=== PATIENT | female | born 1995 | race Hispanic/Latino ===

== ENCOUNTER 2017-06-24 07:19 | Emergency (ER) | payer OTHER ==
[~2017-06-24] VITALS: Ht 154.9 cm; Wt 64.4 kg
[2017-06-24] MEDS ORDERED: PRENAISSANCE C1 EACH PO (07:30)
== END 2017-06-24 08:58 | disposition home or self-care (01) ==
LOC: ED 07:19
DX: O02.1 Missed abortion (principal); Z79.899 Other long term (current) drug therapy
CPT/HCPCS: 76801; 76817; 84702; 85025; 99284

== ENCOUNTER 2017-06-26 09:57 | Day surgery (SDC) | payer OTHER ==
[~2017-06-26] VITALS: Ht 154.9 cm; Wt 64.4 kg
[~2017-06-26 09:57] MED LIST: PRENAISSANCE C1 EACH PO
--- NOTE | 2017-06-26 12:01 | NUR ---
06/26/17 Magy Thacker REPORT FROM [facility].
--- NOTE | 2017-06-26 12:40 | NUR ---
PATIENT BACK IN DAY SURGERY ROOM FROM PACU. DENIES PAIN. DROWSY. PERIPAD IN PLACE THAT IS CLEAN, DRY AND INTACT. SCDs ON. IV SITE WNL. ICE WATER PLACED AT BEDSIDE. SISTER AT BEDSIDE. CALL LIGHT WITHIN REACH.
[2017-06-26] MEDS ORDERED: NORCO 5-325 TA1 EACH PO (12:50)
[2017-06-26] MEDS ORDERED: IBUPROFEN800 MG PO (12:50)
--- NOTE | 2017-06-26 14:38 | NUR ---
1345: VS CHECKED. PATIENT C/O 3/10 PAIN IN ABDOMEN, BUT DECLINES PAIN MEDICATION. TOLERATING WATER. STATES READY TO EAT. SANDWICH ORDERED. SISTER AT BEDSIDE. CALL LIGHT WITHIN REACH.
--- NOTE | 2017-06-26 16:29 | NUR ---
1430: PATIENT TOLERATED SANDWICH. PATIENT ASSISTED OOB AND TO BATHROOM. GAIT STEADY. VOID WITHOUT DIFFICULTY. GAIT STEADY BACK TO ROOM. GETTING DRESSED. 1458: DISCHARGE INSTRUCTIONS GIVEN TO PATIENT AND SISTER. IV DC'D WNL. DRESSING APPLIED. PATIENT DISCHARGED TO HOME WITH SISTER VIA WHEELCHAIR.
--- NOTE | 2017-07-01 09:08 | OR ---
[facility] [address], [place] [address] Signed DATE OF PROCEDURE: 06/26/17 PREOPERATIVE DIAGNOSIS: Missed . POSTOPERATIVE DIAGNOSIS: Missed . PROCEDURE: Suction D and C. SURGEON: Luis Sandoval MD. ANESTHESIA: General with MAC. ESTIMATED BLOOD LOSS: 50 mL. SPECIMEN: Uterine contents.3 DRAINS: None FINDINGS Vagina, minimal blood. Cervix thick and closed. Uterus about 7 weeks size with sounding to 13 cm. A moderate amount of placental tissue and fluid within the cavity. No parts seen. No adnexal masses. COMPLICATIONS: None. DESCRIPTION OF PROCEDURE The patient was brought in the operating room, placed in supine position. After adequate general/MAC anesthesia was obtained, was placed in a dorsal lithotomy position and prepped and draped in usual sterile fashion. A weighted speculum was placed in the vagina and the anterior lip of the cervix grasped with an Allis clamp. Uterine cavity was sounded to 13 cm and the cervix serially dilated up to a #10-Italian dilator. A #10 curved suction tip curette was then tested and carefully inserted in to the uterine cavity and scraped in 360 degree fashion removing moderate amount of tissue. This was continued until a normal empty sound of the uterus could be heard/felt throughout and no additional tissue was removed. At this point, the curette was removed. The cervix and uterus noted to have good hemostasis with minimal blood coming from the cervix. At this point, all instruments were removed from the vagina. The patient tolerated the procedure well, went to recovery room in good condition. Sponge and instrument count were correct at the end of procedure. Electronically Signed By: LUIS SANDOVAL MD 07/01/17 0908 PATIENT NAME: ELIZABETH TORRES OPERATIVE REPORT DATE OF : [birth year] PHYSICIAN: LUIS SANDOVAL MD REPORT #: [id number] REPORT IS CONFIDENTIAL AND NOT TO BE RELEASED WITHOUT AUTHORIZATION [address] [place] [address] Signed MD KELLY Lester/Modl /[id number] cc: NELDA Shi Electronically Signed By: LUIS SANDOVAL MD 07/01/17 0908 PATIENT NAME: ELIZABETH TORRES GAMAL OPERATIVE REPORT DATE OF : [birth year] PHYSICIAN: LUIS SANDOVAL MD REPORT #: [id number] REPORT IS CONFIDENTIAL AND NOT TO BE RELEASED WITHOUT AUTHORIZATION
== END 2017-06-26 14:58 | disposition home or self-care (01) ==
LOC: DS 09:57
PROVIDERS: General Practice
PROC: 10A07ZZ Abortion of Products of Conception, Via Natural or Artificial Opening (ICD-10-PCS; principal; 2017-06-26 11:15)
DX: O02.1 Missed abortion (principal)
CPT/HCPCS: 00952; J1100; J1885; J2250; J2405; J2704; J2765; J3010; J7120

== ENCOUNTER 2019-11-21 15:23 | Emergency (ER) | payer OTHER ==
[~2019-11-21] VITALS: Ht 157.5 cm; Wt 63.5 kg
[~2019-11-21 15:23] MED LIST changes: +IBUPROFEN800 MG PO; +NORCO 5-325 TA1 EACH PO
== END 2019-11-21 18:07 | disposition home or self-care (01) ==
LOC: ED 15:23
DX: O20.0 Threatened abortion (principal); Z3A.01 Less than 8 weeks gestation of pregnancy
CPT/HCPCS: 76801; 76817; 81001; 84702; 85025; 86900; 86901; 99284-25